=== PATIENT | male | born 1975 | race Caucasian/White ===

== ENCOUNTER 2021-05-25 01:24 | Inpatient (IN) | payer OTHER ==
[~2021-05-25] VITALS: Ht 177.8 cm; Wt 81.6 kg
[~2021-05-25 01:24] MED LIST: ALBUTEROL2.5 MG/3 M NEB; CATAPRES 0.1MG0.1 MG PO; DECADRON6 MG PO; IRON325 M1 PO; K-DUR TAB 10 M10 MEQ PO; LASIX20 MG PO; MEDROL DOSEPAK 24 MG PO; MULTIVITAMIN1 EACH PO; NICOTINE PATCH1 EAC2 TD; OMEPRAZOLE20 MG PO; ONDANSETRON HCL8 MG PO; PROAIR HFA8.5 GM INH; PROCTOCREAM-HC30 G1 TP; ROBAXIN 750 MG750 MG PO; VITAMIN C 500500 MG PO; WELLBUTRIN SR150 M1 PO; ZESTRIL20 MG PO
[2021-05-25 02:49] LABS: HEMOGLOBIN 12.9 gm/dl (14.0-17.5); RED BLOOD COUNT 3.8 M/UL (4.20-5.50); WHITE BLOOD COUNT 15.7 K/UL (4.5-11.0)
[2021-05-25 03:02] LABS: BUN/CREATININE RATIO 12 (0-10)
[2021-05-25] MEDS ORDERED: REMERON30 MG PO (11:47)
[2021-05-25] MEDS ORDERED: OMEPRAZOLE20 M2 PO (15:13)
[2021-05-25] MEDS ORDERED: K-TAB ER10 MEQ PO (15:13)
[2021-05-25] MEDS ORDERED: FOLIC ACID 1 MG1 MG PO (15:14)
[2021-05-26 06:44] LABS: WHITE BLOOD COUNT 11.8 K/UL (4.5-11.0)
[2021-05-26 06:50] LABS: HEMOGLOBIN 10.7 gm/dl (14.0-17.5); RED BLOOD COUNT 3.13 M/UL (4.20-5.50)
--- NOTE | 2021-05-26 11:27 | NUR ---
PER DR. HOLCOMB OK TO ADMINISTER MORPHINE NOW
--- NOTE | 2021-05-26 20:03 | NUR ---
1030- LATE ENTRY INSERTED ACEVEDO CATHETER ORDERED 16 ETHIOPIAN. PATIENT TOLERATED PROCEDURE EXPECTED -GOOD RINARY OUTPUT - YELLOW IN COLOR.
[2021-05-27 08:29] LABS: HEMOGLOBIN 10.5 gm/dl (14.0-17.5); RED BLOOD COUNT 3.11 M/UL (4.20-5.50); WHITE BLOOD COUNT 11.7 K/UL (4.5-11.0)
--- NOTE | 2021-05-27 19:15 | NUR ---
RN OBSERVED PATIENT MOVING ARMS AGGRESSIVELY AND MOVING LEGS ABOUT. RN ASKED PATIENT IF HE WAS IN PAIN OR EXPERIENCING ANXIETY, PATIENT STATED HE WAS HAVING SEVERE ABDOMINAL PAIN. RN WENT TO PULL PATIENT'S IV PAIN MEDICATIONS FROM [facility] AND HEARD A BED ALARM IN THE DISTANCE. RN ENTERED ROOM TO FIND PATIENT STANDING AND WITH STAFF AT SIDE. PATIENT NOTED TO HAVE ALTERED MENTAL STATUS AND DIDN'T RECOGNIZE RN WHO HE HAD KNOWN ALL SHIFT PRIOR TO THIS EPISODE. TELEMETRY HAD NOTIFIED ONCOMING NURSE OF HEART RATE IN THE 140'S DURING THIS TIME WELL. RN CALLED DR. HOLCOMB AND ASKED HER TO ASSESS PATIENT AND INFORMED HER OF ALTERED MENTAL STATUS AND TACHYCARDIA. MD ORDERED LABS AND CAME TO ASSESS PATIENT. RN INFORMED MD ATIVAN HAD ONLY BEEN GIVEN A FEW TIMES TODAY PER PATIENT REQUEST. RN STATED THAT SYMPTOMS WERE HARDER TO DIFFERENTIATE BETWEEN WITHDRAWAL, RENAL INSUFFICIENCY, AND OTHER COMORBIDITIES. RN EXPRESSED CONCERN WITH GIVING ATIVAN PER CIWA PROTOCAL ALONG WITH MORPHINE EVERY THREE HOURS AND STATED THE PATIENT REQUESTED ATIVAN BE GIVEN WHEN MORPHINE WAS DUE BECAUSE HE FELT IT WAS MORE THERAPEUTIC. MD STATED THIS WAS FINE. MD ASKED RN IF SHE FELT PATIENT WOULD BE A BETTER CANDIDATE FOR PCU WHILE PENDING TRANSFER TO , RN STATED SHE FELT THIS WAS THE SAFER OPTION. MD ORDERED TRANSFER TO PCU. RN NOTIFIED SILVERWARE BUFFING MACHINE OPERATOR AND MAP MOUNTER, CALLED REPORT TO RECEIVING NURSE, AND TRANSFERRED PATIENTLY SAFELY TO [facility]. BELONGINGS SENT WITH PATIENT AND SEIZURE PRECAUTIONS LEFT IN PLACE FOR PATIENT SAFETY. PATIENT NOTED TO BE SINGING AND RESPONDING APPROPRIATELY TO QUESTIONS ASKED PER STAFF. BED LOCKED AND CALL LIGHT WITHIN REACH.
--- NOTE | 2021-05-27 20:52 | NUR ---
APPROX. 2051: PT TRANSFERRED TO PCU BY RN AND PAEDODONTIST. PT STABLE AT THE TIME OF TRANSFER. PT TRANSFERRED TO ROOM 6102. REPORT CALLED BY ELISHA MCCOY.
[2021-05-28 05:06] LABS: HEMOGLOBIN 9.6 gm/dl (14.0-17.5); RED BLOOD COUNT 2.89 M/UL (4.20-5.50); WHITE BLOOD COUNT 11.4 K/UL (4.5-11.0)
[2021-05-29 03:42] LABS: HEMOGLOBIN 10.3 gm/dl (14.0-17.5); RED BLOOD COUNT 3.07 M/UL (4.20-5.50); WHITE BLOOD COUNT 13.3 K/UL (4.5-11.0)
[2021-05-29 04:16] LABS: BUN/CREATININE RATIO 12 (0-10)
[2021-05-30 10:25] LABS: BUN/CREATININE RATIO 11 (0-10)
[2021-05-30 10:27] LABS: HEMOGLOBIN 10.1 gm/dl (14.0-17.5); RED BLOOD COUNT 3.07 M/UL (4.20-5.50); WHITE BLOOD COUNT 12.7 K/UL (4.5-11.0)
[2021-05-31 15:53] LABS: BUN/CREATININE RATIO 12 (0-10)
[2021-06-01 06:12] LABS: BUN/CREATININE RATIO 13 (0-10)
--- NOTE | 2021-06-02 03:07 | NUR ---
At this time patient is refusing telemetry monitoring. MD Bolanos made aware at this time. No new orders obtained. Will monitor patient.
[2021-06-03 07:55] LABS: HEMOGLOBIN 10.2 gm/dl (14.0-17.5); RED BLOOD COUNT 3.23 M/UL (4.20-5.50); WHITE BLOOD COUNT 12.4 K/UL (4.5-11.0)
[2021-06-04 06:37] LABS: HEMOGLOBIN 10.9 gm/dl (14.0-17.5); RED BLOOD COUNT 3.3 M/UL (4.20-5.50); WHITE BLOOD COUNT 13.1 K/UL (4.5-11.0)
[2021-06-05 06:57] LABS: HEMOGLOBIN 10.8 gm/dl (14.0-17.5); RED BLOOD COUNT 3.28 M/UL (4.20-5.50); WHITE BLOOD COUNT 15.9 K/UL (4.5-11.0)
--- NOTE | 2021-06-06 01:40 | NUR ---
CALLED TO FLOOR TO ASSESS PATIENT WITH NEW ONSET CONFUSION AND TEMP, PATIENT EXTREMELY WARM TO TOUCH, CONFUSED AND AGITATED, HR 150S, TACHYAPNIC, PULLING AT LEADS AND O2, NOTIFIED DR BOOTHE OF NEED TO SEE AND ASSESS THE PATIENT, HE ARRIVED A SHORT TIME LATER AND GAVE ORDERS TO MOVE THE PATIENT TO PCU FOR CLOSER MONITORING.
--- NOTE | 2021-06-06 02:22 | NUR ---
PT ARRIVED TO THE FLOOR. HIS VITALS ARE FOLLOWS, BP 166/112 RR30 HR153. PT RESTLESS AND AGITATED. WILL NOT FOLLOW COMMANDS. CIWA SCORE IS 28. HE JUST HAD RECIEVED ATIVAN PER FLOOR NURSE. NOTIFIED AND HE ORDERS PATIENT TO GO TO ICU. NOTIFIED SECURITY SYSTEMS ENGINEER JAYA MCCOY.
--- NOTE | 2021-06-06 02:35 | NUR ---
PATIENT NOW ON PCU, NURSE NOTED HM THAT PATIENT WAS NOW HAVING SNORING RESP AND SAO2 DOWN IN THE 70'S, ARRIVED TO BEDSIDE PATIENT MORE CONFUSED AND AGITATED, PHYSICIAN NOTIFIED STAT ABG ORDERED, PATIENT PLACED ON 100NRB, ORDERED TO MOVE TO ICU
--- NOTE | 2021-06-06 02:37 | NUR ---
06/06/21 0230 NHR 150'S 02 IN TH 50'S WITH GOOD PLEATH. PT ARRIVED ON ROOM AIR. NON REBREATHER PLACED ON PATIENT WITH 15lITERS. CALLED CONTROLS ENGINEER TO NOTIFY HER. AWARE. 0235 CONTROLS ENGINEER AT BEDSIDE, RT AT BEDSIDE. HR 149 02 93% ON NRB 118/87 99.8, 41 BREATHS PER MIN.
--- NOTE | 2021-06-06 02:55 | NUR ---
0246 F/C 18FR TEMP SENSING CATH PLACED PER MARIANNE MCCOY. REPORT CALLED TO SUSANNA MCCOY. PT TAKEN DOWNSTAIRS TO ICU WITH RT, AND CARRIE MCCOY, AND PRESSER HAND. RELAYED ABG RESULTS TO SUSANNA MCCOY.
--- NOTE | 2021-06-06 03:10 | NUR ---
DR. BOOTHE NOTIFIED THAT PATIENT WAS MOVED TO ICU AND IS CONTINUING TO DECLINE, TEMP 104.8, HR 140-150'S, TACHYAPNIC WITH SAO2 92-94 % ON 100%NRB, ABD TIGHT AND DISTENDED WITH GUARDING, ORDERS GIVEN TO MAX ON AIRVO, PLACE NGTUBE, AND START TYLENOL 1GM IV PER PHARMACY, PATIENT CONTINUES TO BE CONFUSED AND AGITATED, PHYSICIAN STATES WILL BE UP TO SEE PATIENT SOON
[2021-06-06 08:03] LABS: HEMOGLOBIN 10.5 gm/dl (14.0-17.5); RED BLOOD COUNT 3.21 M/UL (4.20-5.50); WHITE BLOOD COUNT 17.9 K/UL (4.5-11.0)
[2021-06-07 05:55] LABS: HEMOGLOBIN 10.7 gm/dl (14.0-17.5); RED BLOOD COUNT 3.29 M/UL (4.20-5.50); WHITE BLOOD COUNT 13.5 K/UL (4.5-11.0)
[2021-06-07 10:14] LABS: HBSAG SCREEN Negative (Negative); HEP A AB, IGM Negative (Negative); HEP B CORE AB, IGM Negative (Negative); HEP C VIRUS AB <0.1 (0.0-0.9)
--- NOTE | 2021-06-08 04:55 | NUR ---
LATE ENTRY 06/08/21 0200 PT CONTINUES TO BE COMBATIVE AND PULL 2 LINES/AIRVO, NEED FOR RESTRAINTS CONTINUED, PATIENT EDUCATED ON RESTRAINTS AND THE NEED FOR THEM, PATIENT EDUCATED ON THE NEED OF AIRVO AND NOT REMOVING, PATIENT VERBALIZES UNDERSTANDING
--- NOTE | 2021-06-08 04:57 | NUR ---
LATE ENTRY 06/08/21 0400 PATIENT IS CONFUSED TO SITUATION/TIME, PATIENT APPEARS TO BE HAVING HALLUCINATIONS/CONTINUES TO TRY AND REMOVE AIRVO/ PATIENT HAS HISTORY OF ALCOHOL ABUSE/PATIENT EDUCATED ON THE THE NEED FOR AIRVO PATIENT VERBALIZES UNDERSTANDING AND CONTINUES TO ATTEMPT REMOVAL OF AIRVO AND TO ATTEMPT TO PULL AT LINES
[2021-06-08 05:27] LABS: ENTEROCOCCUS Not Detected (Negative); KPC-CARBAPENEM-RESISTANCE GENE Not Detected (Negative); STAPHYLOCOCCUS Not Detected (Negative); STAPHYLOCOCCUS AUREUS Not Detected (Negative); mecA (METHICILLIN RESIST GENE Not Detected (Negative); vanA/B (VANCOMYCIN RESIST GENE Not Detected (Negative)
[2021-06-08 05:28] LABS: ACINETOBACTER BAUMANNII Not Detected (Negative); CANDIDA ALBICANS Not Detected (Negative); CANDIDA KRUSEI Not Detected (Negative); CANDIDA TROPICALIS Not Detected (Negative); ESCHERICHIA COLI Not Detected (Negative); HAEMOPHILUS INFLUENZAE Not Detected (Negative); KLEBSIELLA OXYTOCA Not Detected (Negative); KLEBSIELLA PNEUMONIAE Not Detected (Negative); PROTEUS Not Detected (Negative); PSEUDOMONAS AERUGINOSA Not Detected (Negative); SERRATIA MARCESANS Not Detected (Negative); STREP AGALACTIAE (GROUP B) Not Detected (Negative); STREP PYOGENES (GROUP A) Not Detected (Negative); STREPTOCOCCUS Not Detected (Negative)
[2021-06-08 05:53] LABS: HEMOGLOBIN 10.9 gm/dl (14.0-17.5); RED BLOOD COUNT 3.33 M/UL (4.20-5.50); WHITE BLOOD COUNT 11.2 K/UL (4.5-11.0)
--- NOTE | 2021-06-08 21:30 | NUR ---
TPN BAG AND LINE CHANGED
[2021-06-09 04:54] LABS: HEMOGLOBIN 10.3 gm/dl (14.0-17.5); RED BLOOD COUNT 3.2 M/UL (4.20-5.50); WHITE BLOOD COUNT 10.5 K/UL (4.5-11.0)
[2021-06-09 17:52] LABS: ADENOVIRUS F 40/41 Not Detected (Negative); ASTROVIRUS Not Detected (Negative); CAMPYLOBACTER Not Detected (Negative); CLOSTRIDIUM DIFFICILE TOX A/B Not Detected (Negative); CRYPTOSPORIDIUM Not Detected (Negative); E.COLI 0157 Not Detected (Negative); ENTAMOEBA HISTOLYTICA Not Detected (Negative); ENTEROAGGREGATIVE E.COLI (EAEC Not Detected (Negative); ENTEROPATHOGENIC E.COLI (EPEC) Not Detected (Negative); ENTEROTOXIGENIC E.COLI (ETEC) Not Detected (Negative); GIARDIA LAMBLIA Not Detected (Negative); NOROVIRUS GI/GII Not Detected (Negative); PLESIOMONAS SHIGELLOIDES Not Detected (Negative); ROTOVIRUS A Not Detected (Negative); SALMONELLA Not Detected (Negative); SAPOVIRUS Not Detected (Negative); SHIG/ENTEROINVAS.ECOLI (EIEC) Not Detected (Negative); SHIGA-LIK TOX.PRO.E.COLI (STEC Not Detected (Negative); VIBRIO Not Detected (Negative); VIBRIO CHOLERAE Not Detected (Negative); YERSINIA ENTEROCOLITICA Not Detected (Negative)
[2021-06-10 05:02] LABS: RED BLOOD COUNT 3.12 M/UL (4.20-5.50); WHITE BLOOD COUNT 10.1 K/UL (4.5-11.0)
[2021-06-10 08:13] LABS: HIV SCREEN 4TH GENERATION WRFX Non Reactive (Non Reactive)
[2021-06-10 23:52] LABS: HEMOGLOBIN 9.7 gm/dl (14.0-17.5); RED BLOOD COUNT 3.02 M/UL (4.20-5.50); WHITE BLOOD COUNT 10.2 K/UL (4.5-11.0)
[2021-06-11 04:29] LABS: HEMOGLOBIN 8.9 gm/dl (14.0-17.5); RED BLOOD COUNT 2.75 M/UL (4.20-5.50); WHITE BLOOD COUNT 8.9 K/UL (4.5-11.0)
[2021-06-11 04:43] LABS: ACINETOBACTER BAUMANNII Not Detected (Negative); CANDIDA ALBICANS Not Detected (Negative); CANDIDA KRUSEI Not Detected (Negative); CANDIDA TROPICALIS Not Detected (Negative); ENTEROCOCCUS Not Detected (Negative); ESCHERICHIA COLI Not Detected (Negative); HAEMOPHILUS INFLUENZAE Not Detected (Negative); KLEBSIELLA OXYTOCA Not Detected (Negative); KLEBSIELLA PNEUMONIAE Not Detected (Negative); KPC-CARBAPENEM-RESISTANCE GENE Not Detected (Negative); PROTEUS Not Detected (Negative); PSEUDOMONAS AERUGINOSA Not Detected (Negative); SERRATIA MARCESANS Not Detected (Negative); STAPHYLOCOCCUS Not Detected (Negative); STAPHYLOCOCCUS AUREUS Not Detected (Negative); STREP AGALACTIAE (GROUP B) Not Detected (Negative); STREP PYOGENES (GROUP A) Not Detected (Negative); STREPTOCOCCUS Not Detected (Negative); mecA (METHICILLIN RESIST GENE Not Detected (Negative); vanA/B (VANCOMYCIN RESIST GENE Not Detected (Negative)
[2021-06-12 08:33] LABS: HEMOGLOBIN 8.8 gm/dl (14.0-17.5); RED BLOOD COUNT 2.8 M/UL (4.20-5.50); WHITE BLOOD COUNT 9.1 K/UL (4.5-11.0)
[2021-06-12] MEDS ORDERED: VITAMIN B-1100 M1 PO (13:32)
[2021-06-12] MEDS ORDERED: MEROPENEM1 GM IV (13:32)
[2021-06-12] MEDS ORDERED: MICAFUNGIN100 MG INJ (13:32)
== END 2021-06-12 18:45 | disposition short-term general hospital (02) | DRG 438 ==
LOC: ER1 01:24 → CDU 06:05 → MED SURG 4 06:05 → PROG CARE 05-27 20:44 → MED SURG 4 05-30 01:02 → PROG CARE 06-06 02:03 → CCU 06-06 04:17
PROVIDERS: Internal Medicine; Physician Assistant; ADMIT Internal Medicine
PROC: 02HV33Z Insertion of Infusion Device into Superior Vena Cava, Percutaneous Approach (ICD-10-PCS; 2021-05-25)
PROC: B548ZZA Ultrasonography of Superior Vena Cava, Guidance (ICD-10-PCS; 2021-05-25)
PROC: 3E0336Z Introduction of Nutritional Substance into Peripheral Vein, Percutaneous Approach (ICD-10-PCS; principal; 2021-05-29)
PROC: 5A0945A Assistance with Respiratory Ventilation, 24-96 Consecutive Hours, High Flow/Velocity Cannula (ICD-10-PCS; 2021-06-06)
PROC: B24BZZZ Ultrasonography of Heart with Aorta (ICD-10-PCS; 2021-06-07)
DX: K85.90 Acute pancreatitis without necrosis or infection, unspecified (principal); B37.7 Candidal sepsis; Z20.822 Contact with and (suspected) exposure to COVID-19; J96.01 Acute respiratory failure with hypoxia; N17.0 Acute kidney failure with tubular necrosis; R65.21 Severe sepsis with septic shock; E43 Unspecified severe protein-calorie malnutrition; J18.9 Pneumonia, unspecified organism; G93.41 Metabolic encephalopathy; K86.2 Cyst of pancreas; C25.2 Malignant neoplasm of tail of pancreas; K51.00 Ulcerative (chronic) pancolitis without complications; M79.A3 Nontraumatic compartment syndrome of abdomen; F10.139 Alcohol abuse with withdrawal, unspecified; E87.1 Hypo-osmolality and hyponatremia; E87.2 Acidosis; J90 Pleural effusion, not elsewhere classified; J98.11 Atelectasis; I50.32 Chronic diastolic (congestive) heart failure; C25.9 Malignant neoplasm of pancreas, unspecified; K52.9 Noninfective gastroenteritis and colitis, unspecified; E87.70 Fluid overload, unspecified; I11.0 Hypertensive heart disease with heart failure; K75.81 Nonalcoholic steatohepatitis (NASH); E86.1 Hypovolemia; E88.09 Other disorders of plasma-protein metabolism, not elsewhere classified; F17.210 Nicotine dependence, cigarettes, uncomplicated; G89.29 Other chronic pain; E83.41 Hypermagnesemia; D63.8 Anemia in other chronic diseases classified elsewhere; K74.60 Unspecified cirrhosis of liver; Z86.16 Personal history of COVID-19; Z68.25 Body mass index [BMI] 25.0-25.9, adult
CPT/HCPCS: ECHO; 36415; 36600; 71045; 71250; 74018; 74160; 80048; 80053; 80074; 80202; 81001; 82150; 82436; 82550; 82553; 82565; 82570; 82728; 82803; 82962; 83605; 83615; 83690; 83735; 83880; 84100; 84132; 84133; 84156; 84300; 84439; 84443; 84466; 84478; 85025; 85027; 85610; 85652; 85730; 86140; 87040; 87081; 87102; 87150; 87389; 87507; 92526; 92610; 93005; 93306; 93308; 94640; 94664; 94760; 96365; 96366; 96368; 96375; 99285; C1751; C9113; J0692; J1630; J1644; J1885; J1940; J1956; J2060; J2185; J2248; J2270; J2310; J2405; J2997; J3370; J3411; J3475; J7030; J7040; J7050; J7070; J7120; P9047; Q9967; U0002

== ENCOUNTER 2021-07-10 23:02 | Inpatient (IN) | payer OTHER ==
[~2021-07-10] VITALS: Ht 180.3 cm; Wt 72.6 kg
[~2021-07-10 23:02] MED LIST changes: +FOLIC ACID 1 MG1 MG PO; -IRON325 M1 PO; +K-TAB ER10 MEQ PO; -LASIX20 MG PO; +MEROPENEM1 GM IV; +MICAFUNGIN100 MG INJ; -MULTIVITAMIN1 EACH PO; +VITAMIN B-1100 M1 PO; -VITAMIN C 500500 MG PO; -WELLBUTRIN SR150 M1 PO
[2021-07-11 00:38] LABS: HEMOGLOBIN 9.1 gm/dl (14.0-17.5); RED BLOOD COUNT 3.03 M/UL (4.20-5.50); WHITE BLOOD COUNT 13.5 K/UL (4.5-11.0)
[2021-07-12 02:47] LABS: HEMOGLOBIN 8.8 gm/dl (14.0-17.5); RED BLOOD COUNT 2.98 M/UL (4.20-5.50); WHITE BLOOD COUNT 10.9 K/UL (4.5-11.0)
[2021-07-12 03:21] LABS: BUN/CREATININE RATIO 11 (0-10)
[2021-07-12] MEDS ORDERED: REMERON30 MG PO (11:47)
[2021-07-12] MEDS ORDERED: LASIX20 MG PO (11:50)
[2021-07-12] MEDS ORDERED: IRON325 M1 PO (11:51)
[2021-07-12] MEDS ORDERED: VITAMIN C 500500 MG PO (11:51)
[2021-07-12] MEDS ORDERED: WELLBUTRIN XL150 MG PO (11:52)
[2021-07-12] MEDS ORDERED: MULTIVITAMIN1 EACH PO (11:53)
[2021-07-12] MEDS ORDERED: NIFEDIPINE ER30 M1 PO (14:04)
[2021-07-12] MEDS ORDERED: ROBAXIN 750 MG750 MG PO (14:04)
[2021-07-12] MEDS ORDERED: VITAMIN B-121000 MCG PO (14:05)
[2021-07-12] MEDS ORDERED: TYLENOL325 MG PO (14:05)
[2021-07-12] MEDS ORDERED: OMEPRAZOLE20 M2 PO (15:13)
[2021-07-13 03:27] LABS: HEMOGLOBIN 7.9 gm/dl (14.0-17.5); RED BLOOD COUNT 2.7 M/UL (4.20-5.50); WHITE BLOOD COUNT 9.7 K/UL (4.5-11.0)
[2021-07-14 07:33] LABS: HEMOGLOBIN 8.3 gm/dl (14.0-17.5); RED BLOOD COUNT 2.81 M/UL (4.20-5.50); WHITE BLOOD COUNT 9.4 K/UL (4.5-11.0)
[2021-07-15 05:23] LABS: HEMOGLOBIN 7.7 gm/dl (14.0-17.5); RED BLOOD COUNT 2.67 M/UL (4.20-5.50); WHITE BLOOD COUNT 8.2 K/UL (4.5-11.0)
[2021-07-16 10:06] LABS: HEMOGLOBIN 8.6 gm/dl (14.0-17.5); WHITE BLOOD COUNT 8.4 K/UL (4.5-11.0)
[2021-07-16 10:10] LABS: RED BLOOD COUNT 2.94 M/UL (4.20-5.50)
[2021-07-17 04:30] LABS: HEMOGLOBIN 8.1 gm/dl (14.0-17.5); RED BLOOD COUNT 2.78 M/UL (4.20-5.50); WHITE BLOOD COUNT 9.5 K/UL (4.5-11.0)
[2021-07-18 07:40] LABS: HEMOGLOBIN 9.2 gm/dl (14.0-17.5)
[2021-07-18 07:41] LABS: RED BLOOD COUNT 3.2 M/UL (4.20-5.50)
[2021-07-18] MEDS ORDERED: AUGMENTIN 875-1 EACH PO (15:53)
[2021-07-18] MEDS ORDERED: NICOTINE PATCH1 EAC2 TOP (15:53)
[2021-07-18] MEDS ORDERED: PERCOCET 5/325 T1 EA PO (15:53)
[2021-07-18] MEDS ORDERED: POLYETHYLENE GL17 GM PO (15:53)
[2021-07-18] MEDS ORDERED: DOCUSATE SODIU100 MG PO (15:53)
== END 2021-07-18 19:15 | disposition home or self-care (01) | DRG 439 ==
LOC: ER1 23:02 → CDU 07-11 04:42 → MED SURG 4 07-11 13:24 → 3 EAST 07-11 22:54 → MED SURG 4 07-12 20:38
PROVIDERS: Family Medicine; Internal Medicine; Physician Assistant Medical; ADMIT Internal Medicine
PROC: 02HV33Z Insertion of Infusion Device into Superior Vena Cava, Percutaneous Approach (ICD-10-PCS; principal; 2021-07-11)
PROC: B548ZZA Ultrasonography of Superior Vena Cava, Guidance (ICD-10-PCS; 2021-07-11)
DX: K85.90 Acute pancreatitis without necrosis or infection, unspecified (principal); K86.3 Pseudocyst of pancreas; K86.1 Other chronic pancreatitis; Z20.822 Contact with and (suspected) exposure to COVID-19; K52.89 Other specified noninfective gastroenteritis and colitis; F10.10 Alcohol abuse, uncomplicated; I10 Essential (primary) hypertension; D64.9 Anemia, unspecified; K59.03 Drug induced constipation; T40.605A Adverse effect of unspecified narcotics, initial encounter; F17.210 Nicotine dependence, cigarettes, uncomplicated; Z89.021 Acquired absence of right finger(s); Z82.0 Family history of epilepsy and other diseases of the nervous system
CPT/HCPCS: 36415; 71045; 74018; 80048; 80053; 80076; 81001; 82150; 83605; 83690; 83735; 84100; 85025; 85027; 85652; 86140; 87040; 96365; 96372; 96375; 96376; 99285; G0378; J1170; J1650; J2270; J2405; J2543; J7030; Q9967; U0002